=== PATIENT | female | born 1990 | race Caucasian/White ===

== ENCOUNTER 2022-05-01 10:43 | Emergency (ER) | payer BC ==
--- NOTE | 2022-05-01 11:50 | RAD REPORT ---
EXAM DESCRIPTION: RAD - Chest Single View - 05/01/2022 11:35 am CLINICAL HISTORY: CONGESTION Chest pain. COMPARISON: No comparisons FINDINGS: Portable technique limits examination quality. Interstitial markings are mildly prominent suggesting underlying viral infection. The heart is normal in size. No displaced fractures.
[2022-05-01 13:29] LABS: Urine Blood Negative (Negative); Urine Glucose Negative (Negative); Urine Protein Negative (Negative); Urine Specific Gravity 1.025 (1.005-1.030)
--- NOTE | 2022-05-01 13:31 | ER ---
Nurse's Notes [facility] Name: Tanna Bradley Age: 31 yrs Sex: Female : 1990 Arrival Date: 05/01/2022 Time: 10:52 Bed 10 Private MD: Bam Bauer Diagnosis: Nausea with vomiting, unspecified Presentation: 05/01 11:16 Chief complaint: Patient states: Covid + last Sunday, prescribed paxlovid but could ph not tolerate side effects. C/O low back pain, burning w/ urination, fatigue, and dry cough, diarrhea yesterday. Coronavirus screen: Vaccine status: Patient reports being unvaccinated. Ebola Screen: No symptoms or risks identified at this time. Initial Sepsis Screen: Does the patient meet any 2 criteria? No. Patient's initial sepsis screen is negative. Does the patient have a suspected source of infection? Yes: Dysuria/Frequency/Urgency/UTI. Risk Assessment: Do you want to hurt yourself or someone else? Patient reports no desire to harm self or others. Onset of symptoms was May 01, 2022. 11:16 Method Of Arrival: Ambulatory ph 11:16 Acuity: DANA 4 ph Triage Assessment: 11:20 General: Appears in no apparent distress. comfortable, well groomed, Behavior is calm, ph cooperative, appropriate for age, Reports fatigue for >3 days, Denies fever. Pain: Complains of pain in low back area. Neuro: Level of Consciousness is awake, alert, obeys commands, Oriented to person, place, time, situation. Respiratory: Reports cough that is dry. GI: Abdomen is non-distended, Reports diarrhea. : Reports pain in bilateral flank(s), with urination, urinary frequency. Derm: Skin is intact, is healthy with good turgor, Skin is pink, warm \T\ dry. Musculoskeletal: Circulation, motion, and sensation intact. Range of motion: intact in all extremities. Historical: - Allergies: 11:19 Augmentin; ph - PMHx: 11:19 Depressive disorder; Anxiety; ph - PSHx: 11:19 Craniotomy; ph - Immunization history:: Adult Immunizations unknown. - Social history:: Smoking status: Patient/guardian denies using tobacco, Stopped _ months ago 6. Screenin:21 Abuse screen: Denies threats or abuse. Denies injuries from another. Nutritional ph screening: No deficits noted. Tuberculosis screening: No symptoms or risk factors identified. Fall Risk None identified. Vital Signs: 11:16 BP 128 / 97; Pulse 63; Resp 18; Temp 97.6; Pulse Ox 100% on R/A; Weight 93.44 kg; ph Height 5 ft. 11 in. (180.34 cm); 11:16 Body Mass Index 28.73 (93.44 kg, 180.34 cm) ph ED Course: 10:52 Patient arrived in ED. am2 10:52 Bam Bauer MD is Private Physician. am2 10:52 M[facility] Wilkinson is [facility]. jl9 10:52 Juan Antonio Tinoco DO is Attending Physician. jl9 11:16 Marybeth Peters, RN is Primary Nurse. ph 11:19 Triage completed. ph 11:19 Arm band placed on Patient placed in an exam room, on a stretcher. ph 11:21 Patient has correct armband on for positive identification. Bed in low position. Call ph light in reach. Side rails up X 1. Pulse ox on. NIBP on. Door closed. Noise minimized. 11:37 XRAY Chest (1 view) In Process Unspecified. EDMS 14:20 No provider procedures requiring assistance completed. Patient did not have IV access ph during this emergency room visit. Administered Medications: No medications were administered Medication: 11:21 VIS not applicable for this client. ph Outcome: 13:30 Discharge ordered by . jl9 14:25 Patient left the ED. ph 14:25 Discharged to home ambulatory, with family. ph 14:25 Condition: good 14:25 Discharge instructions given to patient, Instructed on discharge instructions, follow up and referral plans. medication usage, Demonstrated understanding of instructions, follow-up care, medications, Prescriptions given X 2. Signatures: Dispatcher [employer] EDMS Marybeth Peters, RN RN Letitia Ivan 2 Manny Wilkinson jl9
--- NOTE | 2022-05-01 13:31 | EDPHYS ---
Physician Documentation [facility] Name: Tanna Bradley Age: 31 yrs Sex: Female : 1990 Arrival Date: 05/01/2022 Time: 10:52 Bed 10 Private MD: Bam Bauer ED Physician Juan Antonio Tinoco HPI: 05/01 11:13 This 31 yrs old Female presents to ER via Unassigned with complaints of jl9 covid+, Nausea/Vomiting/Diarrhea, Flank Pain. Patient tested positive for COVID 6 days ago. . 11:13 Onset: The symptoms/episode began/occurred 1 week(s) ago. Associated signs and jl9 symptoms: Pertinent positives: dysuria, Pertinent negatives: chest pain, diarrhea. Modifying factors: The patient symptoms are alleviated by nothing, the patient symptoms are aggravated by nothing. Historical: - Allergies: 11:19 Augmentin; ph - PMHx: 11:19 Depressive disorder; Anxiety; ph - PSHx: 11:19 Craniotomy; ph - Immunization history:: Adult Immunizations unknown. - Social history:: Smoking status: Patient/guardian denies using tobacco, Stopped _ months ago 6. ROS: 11:14 Constitutional: Negative for fever, chills, and weight loss, Eyes: Negative for injury, jl9 pain, redness, and discharge, ENT: Negative for injury, pain, and discharge, Neck: Negative for injury, pain, and swelling, Cardiovascular: Negative for chest pain, palpitations, and edema. 11:14 Back: Negative for injury and pain. 11:14 MS/Extremity: Negative for injury and deformity, Skin: Negative for injury, rash, and discoloration, Neuro: Negative for headache, weakness, numbness, tingling, and seizure, Psych: Negative for depression, anxiety, suicide ideation, homicidal ideation, and hallucinations, Allergy/Immunology: Negative for hives, rash, and allergies, Endocrine: Negative for neck swelling, polydipsia, polyuria, polyphagia, and marked weight changes, Hematologic/Lymphatic: Negative for swollen nodes, abnormal bleeding, and unusual bruising. 11:14 Respiratory: Positive for cough, Negative for hemoptysis, orthopnea, shortness of breath. 11:14 Abdomen/GI: Positive for Flank pain/ suprapubic pain. . 11:14 : Positive for flank pain. Exam: 11:15 Constitutional: This is a well developed, well nourished patient who is awake, alert, jl9 and in no acute distress. Head/Face: Normocephalic, atraumatic. Eyes: Pupils equal round and reactive to light, extra-ocular motions intact. Lids and lashes normal. Conjunctiva and sclera are non-icteric and not injected. Cornea within normal limits. Periorbital areas with no swelling, redness, or edema. ENT: Mucous membranes moist. Neck: Trachea midline, no thyromegaly or masses palpated, and no cervical lymphadenopathy. Supple, full range of motion without nuchal rigidity, or vertebral point tenderness. No Meningismus. Chest/axilla: Normal chest wall appearance and motion. Nontender with no deformity. No lesions are appreciated. Cardiovascular: Regular rate and rhythm with a normal S1 and S2. No gallops, murmurs, or rubs. Normal PMI, no JVD. No pulse deficits. Respiratory: Lungs have equal breath sounds bilaterally, clear to auscultation and percussion. No rales, rhonchi or wheezes noted. No increased work of breathing, no retractions or nasal flaring. 11:15 Skin: Warm, dry with normal turgor. Normal color with no rashes, no lesions, and no evidence of cellulitis. MS/ Extremity: Pulses equal, no cyanosis. Neurovascular intact. Full, normal range of motion. Neuro: Awake and alert, GCS 15, oriented to person, place, time, and situation. Cranial nerves II-XII grossly intact. Motor strength 5/5 in all extremities. Sensory grossly intact. Cerebellar exam normal. Normal gait. Psych: Awake, alert, with orientation to person, place and time. Behavior, mood, and affect are within normal limits. 11:15 Abdomen/GI: Inspection: abdomen appears normal, Bowel sounds: normal, Palpation: mild abdominal tenderness, Suprapubic.. 11:15 Back: pain, CVA tenderness, that is mild, is noted bilaterally. Vital Signs: 11:16 BP 128 / 97; Pulse 63; Resp 18; Temp 97.6; Pulse Ox 100% on R/A; Weight 93.44 kg; ph Height 5 ft. 11 in. (180.34 cm); 11:16 Body Mass Index 28.73 (93.44 kg, 180.34 cm) ph MDM: 11:03 Patient medically screened. jl9 11:17 Data reviewed: vital signs, nurses notes. jl9 13:17 Counseling: I had a detailed discussion with the patient and/or guardian regarding: the jl9 historical points, exam findings, and any diagnostic results supporting the discharge/admit diagnosis, lab results, radiology results, the need for outpatient follow up. 05/01 13:29 Order name: Urine Dipstick-Ancillary; Complete Time: 13:30 EDMS 05/01 13:41 Order name: Urine --Ancillary (enter results); Complete Time: 14:21 bd 05/01 11:04 Order name: Urine Dipstick-Ancillary (obtain specimen); Complete Time: 11:22 jl9 05/01 11:04 Order name: XRAY Chest (1 view); Complete Time: 11:52 jl9 Administered Medications: No medications were administered Disposition: 21:36 Co-signature as Attending Physician, Juan Antonio Tinoco DO I agree with the assessment and ms3 plan of care. Disposition Summary: 05/01/22 13:30 Discharge Ordered Location: Home jl9 Condition: Stable jl9 Diagnosis - Nausea with vomiting, unspecified jl9 Followup: jl9 - With: Private Physician - When: 1 - 2 days - Reason: Recheck today's complaints, Continuance of care, Re-evaluation by your physician Discharge Instructions: - Discharge Summary Sheet jl9 - Nausea and Vomiting, Adult, [id number] jl9 Forms: - Medication Reconciliation Form jl9 - Work release form ph - Thank You Letter jl9 - Antibiotic Education jl9 - Prescription Opioid Use jl9 Prescriptions: - Cipro 500 mg Oral Tablet - take 1 tablet by ORAL route every 12 hours for 7 days; 14 tablet; Refills: 0, jl9 Product Selection Permitted - ondansetron 8 mg Oral tablet,disintegrating - take 1 tablet by ORAL route every 8 hours As needed; 21 tablet; Refills: 0, jl9 Product Selection Permitted Signatures: Dispatcher [employer] Marybeth Moore RN RN ph Juan Antonio Tinoco DO DO ms3 Manny Wilkinson jl9
[2022-05-01 14:19] LABS: Urine Specific Gravity/Preg 1.025 (1.005-1.030)
[2022-05-01 14:36] VITALS: BP 128/97; TEMP 97.6; O2SAT 100
== END 2022-05-01 14:25 | disposition home or self-care (01) ==
LOC: ER 10:43
DX: R11.0 Nausea (principal); R30.0 Dysuria; Z88.1 Allergy status to other antibiotic agents
CPT/HCPCS: 71045; 81003; 81025; 99283

== ENCOUNTER 2023-04-01 00:02 | Emergency (ER) | payer BC ==
[2023-04-01] MEDS ORDERED: ONDANSETRON 4 MG/2 ML VIAL ONE (00:41)
[2023-04-01] MEDS ORDERED: FAMOTIDINE 20 MG/2 ML VIAL IV ONE (00:41)
[2023-04-01] MEDS ORDERED: NA CHLORIDE 0.9% 1,000 ML ONE (00:41)
[2023-04-01] MEDS ORDERED: DICYCLOMINE HCL 20 MG/2 ML AMP IM ONE (00:41)
[2023-04-01 00:47] LABS: Absolute Lymphocytes (CBC) 0.8 K/uL (0.7-4.9); Hematocrit 38.3 % (36.0-45.0); MCV 90.7 fL (80-100); RBC Red Blood Cell Count 4.22 M/uL (3.86-4.86)
[2023-04-01 01:05] LABS: Bilirubin Total 0.5 mg/dL (0.2-1.0); Potassium 3.4 mEq/L (3.5-5.1); Protein, Total 8.1 g/dL (6.4-8.2)
[2023-04-01] MEDS ORDERED: METOCLOPRAMIDE 10 MG/2mL INJ ONE (01:31)
[2023-04-01] MEDS ORDERED: DIPHENHYDRAMINE 50 MG/ML VIAL ONE (01:32)
--- NOTE | 2023-04-01 02:14 | EDPHYS ---
Physician Documentation [facility] Name: Tanna Bradley Age: 32 yrs Sex: Female : 1990 Arrival Date: 04/01/2023 Time: 00:02 Bed 7 Private MD: ED Physician Solitario Rahman HPI: 04/01 00:55 This 32 yrs old Female presents to ER via Wheelchair with complaints of rt Nausea/Vomiting/Diarrhea. 00:55 Patient presents to the ED with nausea, vomiting, diarrhea starting about 2 hours prior rt to arrival. She reports a crampy upper abdominal pain denies hematemesis, hematochezia. Denies other acute complaints at this time, symptoms are moderate severity, no other aggravating alleviating factors.. 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 - Social history:: Smoking status: Patient denies any tobacco usage or history of. - Family history:: not pertinent. ROS: 00:55 Constitutional: Negative for fever, chills, and weight loss, Cardiovascular: Negative rt for chest pain, palpitations, and edema, Respiratory: Negative for shortness of breath, cough, wheezing, and pleuritic chest pain, MS/Extremity: Negative for injury and deformity, Skin: Negative for injury, rash, and discoloration, Neuro: Negative for headache, weakness, numbness, tingling, and seizure, Psych: Negative for depression, anxiety, suicide ideation, homicidal ideation, and hallucinations. 00:55 Abdomen/GI: Positive for abdominal pain, nausea, vomiting, and diarrhea. Exam: 00:55 Constitutional: This is a well developed, well nourished patient who is awake, alert, rt and in no acute distress. Head/Face: Normocephalic, atraumatic. Chest/axilla: Normal chest wall appearance and motion. Nontender with no deformity. No lesions are appreciated. Cardiovascular: Regular rate and rhythm with a normal S1 and S2. No gallops, murmurs, or rubs. Normal PMI, no JVD. No pulse deficits. Respiratory: Lungs have equal breath sounds bilaterally, clear to auscultation and percussion. No rales, rhonchi or wheezes noted. No increased work of breathing, no retractions or nasal flaring. Skin: Warm, dry with normal turgor. Normal color with no rashes, no lesions, and no evidence of cellulitis. MS/ Extremity: Pulses equal, no cyanosis. Neurovascular intact. Full, normal range of motion. Neuro: Awake and alert, GCS 15, oriented to person, place, time, and situation. Cranial nerves II-XII grossly intact. Motor strength 5/5 in all extremities. Sensory grossly intact. Cerebellar exam normal. Normal gait. Psych: Awake, alert, with orientation to person, place and time. Behavior, mood, and affect are within normal limits. 00:55 Abdomen/GI: Tenderness to the right upper quadrant to epigastrium, no rebound, guarding, distention, no focal right lower quadrant tenderness. Vital Signs: 00:21 BP 119 / 77; Pulse 59; Resp 16; Temp 97.5(O); Pulse Ox 100% on R/A; Weight 97.52 kg; kd3 Height 5 ft. 9 in. ; 01:26 Pulse 53; Resp 20 S; Pulse Ox 100% on R/A; as6 00:21 Body Mass Index 31.75 (97.52 kg, 175.26 cm) kd3 MDM: 00:22 Patient medically screened. rt 02:15 Differential diagnosis: Gastroenteritis, cholecystitis, gastritis. Data reviewed: vital rt signs, nurses notes, lab test result(s), radiologic studies. I considered the following discharge prescriptions or medication management in the emergency department Medications were administered in the Emergency Department. See MAR. Test considered but Not performed: CT: Benign abdominal examination, stable labs, CT scan is not indicated.. Counseling: I had a detailed discussion with the patient and/or guardian regarding: the historical points, exam findings, and any diagnostic results supporting the discharge/admit diagnosis, lab results, radiology results, the need for outpatient follow up, to return to the emergency department if symptoms worsen or persist or if there are any questions or concerns that arise at home. Response to treatment: the patient's symptoms have markedly improved after treatment. 04/01 00:29 Order name: CBC with Diff; Complete Time: 01:12 rt 04/01 00:29 Order name: CMP; Complete Time: 01:12 rt 04/01 00:29 Order name: Lipase; Complete Time: 01:12 rt 04/01 00:29 Order name: Abdomen Limited US rt 04/01 00:29 Order name: IV Saline Lock; Complete Time: 00:43 rt 04/01 00:29 Order name: Labs collected and sent; Complete Time: 00:43 rt Administered Medications: 00:43 Drug: Famotidine IVP 20 mg Route: IVP; Site: right antecubital; as6 02:18 Follow up: Response: No adverse reaction as6 00:43 Drug: Dicyclomine IM 20 mg Route: IM; Site: right ventrogluteal; as6 02:18 Follow up: Response: No adverse reaction as6 00:44 Drug: NS 0.9% IV 1000 ml Route: IV; Rate: 1 bolus; Site: right antecubital; as6 02:18 Follow up: Response: No adverse reaction; IV Status: Completed infusion; IV Intake: as6 1000ml 00:44 Drug: Ondansetron IVP 4 mg Route: IVP; Site: right antecubital; as6 02:18 Follow up: Response: No adverse reaction as6 01:25 Drug: metoCLOPramide IVP 10 mg Route: IVP; Site: right antecubital; as6 02:18 Follow up: Response: No adverse reaction as6 01:26 Drug: diphenhydrAMINE IVP 25 mg Route: IVP; Site: right antecubital; as6 02:18 Follow up: Response: No adverse reaction as6 Disposition Summary: 04/01/23 02:14 Discharge Ordered Location: Home rt Problem: new rt Symptoms: have improved rt Condition: Stable rt Diagnosis - Nausea with vomiting, unspecified rt - Diarrhea, unspecified rt Followup: rt - With: Private Physician - When: 2 - 3 days - Reason: Discharge Instructions: - Discharge Summary Sheet rt - Diarrhea, Adult rt - Nausea and Vomiting, Adult rt Forms: - Medication Reconciliation Form rt - Thank You Letter rt - Antibiotic Education rt - Prescription Opioid Use rt - Patient Portal Instructions rt Prescriptions: - Reglan 10 mg Oral Tablet - take 1 tablet by ORAL route every 6 hours Take as needed for nausea and rt vomiting; 21 tablet; Refills: 0, Product Selection Permitted Signatures: Dispatcher [employer] Phuc Cox RN RN as6 Jodie Salcedo RN RN kd3 Solitario Rahman MD MD rt
--- NOTE | 2023-04-01 02:14 | ER ---
Nurse's Notes [facility] Name: Tanna Bradley Age: 32 yrs Sex: Female : 1990 Arrival Date: 04/01/2023 Time: 00:02 Bed 7 Private MD: Diagnosis: Nausea with vomiting, unspecified;Diarrhea, unspecified Presentation: 04/01 00:21 Chief complaint: Patient states: About 3 or 4 hours ago i started having nausea, kd3 vomiting and diarrhea that wont stop. I have not eaten anything new and i have not had fever. Prior to the nausea and vomiting, I did not feel bad other than a bit of nausea. Coronavirus screen: Vaccine status: Patient reports being unvaccinated. Ebola Screen: No symptoms or risks identified at this time. Initial Sepsis Screen: Does the patient meet any 2 criteria? No. Patient's initial sepsis screen is negative. Does the patient have a suspected source of infection? No. Patient's initial sepsis screen is negative. Risk Assessment: Do you want to hurt yourself or someone else? Patient reports no desire to harm self or others. Onset of symptoms was April 01, 2023. 00:21 Method Of Arrival: Wheelchair kd3 00:21 Acuity: DANA 3 kd3 Triage Assessment: 00:24 General: Appears uncomfortable, ill, Behavior is calm, cooperative. Pain: Complains of kd3 pain in epigastric area. GI: Reports upper abdominal pain, diarrhea, nausea, vomiting. 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 - Social history:: Smoking status: Patient denies any tobacco usage or history of. - Family history:: not pertinent. Screenin:45 [facility] ED Fall Risk Assessment (Adult) Score/Fall Risk Level 0 - 2 = Low Risk. Abuse as6 screen: Denies threats or abuse. Denies injuries from another. Nutritional screening: No deficits noted. Tuberculosis screening: No symptoms or risk factors identified. Assessment: 00:44 General: Appears uncomfortable, ill, Behavior is calm, cooperative. Pain: Complains of as6 pain in abdomen and epigastric area. Neuro: Level of Consciousness is awake, alert, obeys commands, Oriented to person, place, time, situation. Cardiovascular: Capillary refill < 3 seconds Patient's skin is warm and dry. Respiratory: Respiratory effort is even, unlabored, Respiratory pattern is regular, symmetrical. GI: Pt is actively vomiting bile, Reports upper abdominal pain, diarrhea, nausea, vomiting. 01:25 General: pt still c/o nasuea and is dry heaving . as6 Vital Signs: 00:21 BP 119 / 77; Pulse 59; Resp 16; Temp 97.5(O); Pulse Ox 100% on R/A; Weight 97.52 kg; kd3 Height 5 ft. 9 in. ; 01:26 Pulse 53; Resp 20 S; Pulse Ox 100% on R/A; as6 00:21 Body Mass Index 31.75 (97.52 kg, 175.26 cm) kd3 ED Course: 00:06 Patient arrived in ED. kj1 00:13 Solitario Rahman MD is Attending Physician. rt 00:16 Phuc Hedrick, MOUSTAPHA is Primary Nurse. as6 00:24 Triage completed. kd3 00:24 Arm band placed on right wrist. kd3 00:44 Inserted saline lock: 20 gauge in right antecubital area, using aseptic technique. as6 Blood collected. 00:45 Bed in low position. Call light in reach. as6 01:14 Abdomen Limited US In Process Unspecified. EDMS 02:19 Provided Education on: discharge teaching . as6 02:19 No provider procedures requiring assistance completed. IV discontinued, intact, as6 bleeding controlled, No redness/swelling at site. Pressure dressing applied. Administered Medications: 00:43 Drug: Famotidine IVP 20 mg Route: IVP; Site: right antecubital; as6 02:18 Follow up: Response: No adverse reaction as6 00:43 Drug: Dicyclomine IM 20 mg Route: IM; Site: right ventrogluteal; as6 02:18 Follow up: Response: No adverse reaction as6 00:44 Drug: NS 0.9% IV 1000 ml Route: IV; Rate: 1 bolus; Site: right antecubital; as6 02:18 Follow up: Response: No adverse reaction; IV Status: Completed infusion; IV Intake: as6 1000ml 00:44 Drug: Ondansetron IVP 4 mg Route: IVP; Site: right antecubital; as6 02:18 Follow up: Response: No adverse reaction as6 01:25 Drug: metoCLOPramide IVP 10 mg Route: IVP; Site: right antecubital; as6 02:18 Follow up: Response: No adverse reaction as6 01:26 Drug: diphenhydrAMINE IVP 25 mg Route: IVP; Site: right antecubital; as6 02:18 Follow up: Response: No adverse reaction as6 Medication: 00:45 VIS not applicable for this client. as6 Intake: 02:18 IV: 1000ml; Total: 1000ml. as6 Outcome: 02:14 Discharge ordered by . rt 02:19 Discharged to home ambulatory. as6 02:19 Condition: stable 02:19 Discharge instructions given to patient, Instructed on discharge instructions, follow up and referral plans. medication usage, Demonstrated understanding of instructions, follow-up care, medications, Prescriptions given X 1. 02:19 Patient left the ED. as6 Signatures: Dispatcher [employer] EDAK Esteban Courtney kj1 Phuc Hedrick RN RN as6 Jodie Salcedo RN RN kd3 Solitario Rahman MD MD rt
[2023-04-01 02:39] VITALS: BP 119/77; TEMP 97.5; O2SAT 100
--- NOTE | 2023-04-01 13:37 | RAD REPORT ---
EXAM DESCRIPTION: US - Abdomen Exam Limited - 04/01/2023 1:12 am CLINICAL HISTORY: The patient is 32 years old and is Female; RUQ tenderness TECHNIQUE: Real-time ultrasound of the right upper quadrant with image documentation. COMPARISON: No relevant prior studies available. FINDINGS: GALLBLADDER: The gallbladder is moderately distended. No gallstones are seen. There is n o gallbladder wall thickening or pericholecystic fluid. COMMON BILE DUCT: Unremarkable as visualized. No stones. No dilation. PANCREAS: Unremarkable as visualized. IMPRESSION: Normal sonographic appearance of the gallbladder. Electronically signed by: Josee Mcclain MD 04/01/2023 1:47 AM CDT Due to temporary technical issues with the PACS/Fluency reporting system, reports are being signed by the in house radiologists without review as a courtesy to insure prompt reporting. The interpreting radiologist is fully responsible for the content of the report.
== END 2023-04-01 02:19 | disposition home or self-care (01) ==
LOC: ER 00:02
DX: R11.2 Nausea with vomiting, unspecified (principal); R19.7 Diarrhea, unspecified; Z88.0 Allergy status to penicillin; Z88.1 Allergy status to other antibiotic agents
CPT/HCPCS: 96361; 85025; 36415; 83690; 80053; 76705; 96375; 96372; 96374; 99284; J2765; J0500; J1200; J2405; J7030

== ENCOUNTER 2024-03-12 07:28 | Emergency (ER) | payer BC, SELFPAY ==
[2024-03-12] MEDS ORDERED: PROMETHAZINE INJ 25 MG/ML AMP ONE (07:43)
[2024-03-12] MEDS ORDERED: FAMOTIDINE 20 MG/2 ML VIAL IV ONE (07:43)
[2024-03-12] MEDS ORDERED: NA CHLORIDE 0.9% 2,000 ML ONE (07:44)
[2024-03-12 07:57] LABS: Absolute Basophils 0.1 K/uL (0-0.5); Absolute Lymphocytes (CBC) 1.2 K/uL (0.7-4.9); Absolute Monocytes 0.6 K/uL (0.1-1.3); Absolute Neutrophil 9.5 K/uL (1.8-8.0); Basophils % 0.6 % (0-1.3); Eosinophils % 0.2 % (0-4.4); Hematocrit 39.3 % (36.0-45.0); Hemoglobin 12.8 g/dL (12.0-15.0); Lymphocytes % 10.5 % (15.3-44.8); MCH 29.7 pg (27.0-35.0); MCHC 32.6 g/dL (32.0-36.0); MPV 10.5 fL (7.6-11.3); Monocytes % 5.4 % (3.3-12.3); Neutrophils % 83.3 % (41.7-73.7); Platelets 287 thou/uL (152-406); RBC Red Blood Cell Count 4.32 M/uL (3.86-4.86); Red Cell Distribution Width 13.6 % (12.1-15.2)
[2024-03-12 08:10] LABS: Albumin 3.9 g/dL (3.4-5.0); Anion Gap 12.1 mEq/L (5.0-15.0); Bilirubin Total 0.5 mg/dL (0.2-1.0); Globulin 3.8 g/dL (2.3-3.5); Potassium 3.1 mEq/L (3.5-5.1); Protein, Total 7.7 g/dL (6.4-8.2)
[2024-03-12] MEDS ORDERED: POTASSIUM 25 MEQ EFFERV TAB ONE (10:10)
--- NOTE | 2024-03-12 10:52 | EDPHYS ---
Physician Documentation [facility] Name: Tanna Bradley Age: 33 yrs Sex: Female : 1990 Arrival Date: 03/12/2024 Time: 07:28 Bed 7 Private MD: GARY Physician Modesto Cote HPI: 03/12 10:43 This 33 yrs old Female presents to ER via EMS with complaints of michael Nausea/Vomiting. 10:43 The patient presents to the emergency department with nausea, vomiting, that is michael intermittent, described as bilious. Onset: The symptoms/episode began/occurred 1 week(s) ago. Possible causes: unknown. The symptoms are aggravated by movement, The symptoms are alleviated by nothing. Associated signs and symptoms: Pertinent positives: nausea, vomiting. Severity of symptoms: At their worst the symptoms were moderate in the emergency department the symptoms have improved moderately. The patient has experienced similar episodes in the past, a few times. Historical: - Allergies: 07:38 Augmentin; ph 07:38 PENICILLINS; ph - PMHx: 07:38 Anxiety; depressive disorder; ph - PSHx: 07:38 Craniotomy; ph - Immunization history:: Adult Immunizations unknown. - Infectious Disease History:: Denies. - Social history:: Smoking status: Patient denies any tobacco usage or history of. Patient uses alcohol, occasionally. Patient/guardian denies using street drugs. ROS: 10:45 Constitutional: Negative for fever, chills, and weight loss, Eyes: Negative for injury, michael pain, redness, and discharge, ENT: Negative for injury, pain, and discharge, Neck: Negative for injury, pain, and swelling, Cardiovascular: Negative for chest pain, palpitations, and edema, Respiratory: Negative for shortness of breath, cough, wheezing, and pleuritic chest pain, Back: Negative for injury and pain, : Negative for injury, bleeding, discharge, and swelling, MS/Extremity: Negative for injury and deformity, Skin: Negative for injury, rash, and discoloration, Neuro: Negative for headache, weakness, numbness, tingling, and seizure, Psych: Negative for depression, anxiety, suicide ideation, homicidal ideation, and hallucinations, Allergy/Immunology: Negative for hives, rash, and allergies, Endocrine: Negative for neck swelling, polydipsia, polyuria, polyphagia, and marked weight changes, Hematologic/Lymphatic: Negative for swollen nodes, abnormal bleeding, and unusual bruising, 10:45 Abdomen/GI: Positive for nausea and vomiting, abdominal cramps, Exam: 10:45 Constitutional: This is a well developed, well nourished patient who is awake, alert, michael and in no acute distress. Head/Face: Normocephalic, atraumatic. Eyes: Pupils equal round and reactive to light, extra-ocular motions intact. Lids and lashes normal. Conjunctiva and sclera are non-icteric and not injected. Cornea within normal limits. Periorbital areas with no swelling, redness, or edema. ENT: Nares patent. No nasal discharge, no septal abnormalities noted. Tympanic membranes are normal and external auditory canals are clear. Oropharynx with no redness, swelling, or masses, exudates, or evidence of obstruction, uvula midline. Mucous membranes moist. Neck: Trachea midline, no thyromegaly or masses palpated, and no cervical lymphadenopathy. Supple, full range of motion without nuchal rigidity, or vertebral point tenderness. No Meningismus. Chest/axilla: Normal chest wall appearance and motion. Nontender with no deformity. No lesions are appreciated. Cardiovascular: Regular rate and rhythm with a normal S1 and S2. No gallops, murmurs, or rubs. Normal PMI, no JVD. No pulse deficits. Respiratory: Lungs have equal breath sounds bilaterally, clear to auscultation and percussion. No rales, rhonchi or wheezes noted. No increased work of breathing, no retractions or nasal flaring. Abdomen/GI: Soft, non-tender, with normal bowel sounds. No distension or tympany. No guarding or rebound. No evidence of tenderness throughout. Back: No spinal tenderness. No costovertebral tenderness. Full range of motion. Skin: Warm, dry with normal turgor. Normal color with no rashes, no lesions, and no evidence of cellulitis. MS/ Extremity: Pulses equal, no cyanosis. Neurovascular intact. Full, normal range of motion. Neuro: Awake and alert, GCS 15, oriented to person, place, time, and situation. Cranial nerves II-XII grossly intact. Motor strength 5/5 in all extremities. Sensory grossly intact. Cerebellar exam normal. Normal gait. Psych: Awake, alert, with orientation to person, place and time. Behavior, mood, and affect are within normal limits. 10:45 ECG was reviewed by the Attending Physician. Vital Signs: 07:32 BP 118 / 87; Pulse 55; Resp 20; Temp 97.3; Pulse Ox 100% on R/A; Weight 97.52 kg; ph Height 5 ft. 9 in. ; Pain 0/10; 09:28 BP 120 / 80; Pulse 50; Resp 18; Pulse Ox 98% on R/A; ph 10:55 BP 118 / 78; Pulse 51; Resp 18; Temp 97.9; Pulse Ox 97% on R/A; ph 07:32 Body Mass Index 31.75 (97.52 kg, 175.26 cm) ph 07:32 Pain Scale: Adult ph MDM: 07:32 Patient medically screened. [facility] 10:47 Differential diagnosis: Nonspecific abd pain, gastritis, cholecystitis, pancreatitis, michael appendicitis, diverticulitis, viral gastroenteritis, gastroenteritis, appendicitis, bowel obstruction, coronary artery disease, cholecystitis, Cholelithiasis, diverticulitis, gastritis, gastroesophageal reflux disease, Mesenteric ischemia or infarction, non-specific abd pain, pancreatitis, Peptic Ulcer Disease, Perf. Duodenal Ulcer. Data reviewed: vital signs, nurses notes, lab test result(s), EKG, radiologic studies. Consideration of Admission/Observation Escalation of care including admission/observation considered. I considered the following discharge prescriptions or medication management in the emergency department Medications were administered in the Emergency Department. See MAR. Independent interpretation of the following test(s) in the Emergency Department EKG: See my EKG interpretation above. Test considered but Not performed: MRI: no mrcp. Historians other than the Patient: Spouse/Significant Other: sign other. Care significantly affected by the following chronic conditions: Obesity, anxiety, depression. 03/12 07:33 Order name: CBC with Diff; Complete Time: 09:54 [facility] 03/12 07:33 Order name: CMP; Complete Time: 09:54 michael 03/12 07:33 Order name: Lipase; Complete Time: 09:54 03/12 07:33 Order name: Test, Urine; Complete Time: 11:25 03/12 07:33 Order name: Urinalysis w/ reflexes; Complete Time: 11:25 03/12 10:44 Order name: US Abdomen Limited 03/12 07:42 Order name: EKG; Complete Time: 07:42 [facility] 03/12 07:33 Order name: IV Saline Lock; Complete Time: 07:40 [facility] 03/12 07:33 Order name: Labs collected and sent; Complete Time: 07:58 [facility] 03/12 07:42 Order name: EKG - Nurse/Tech; Complete Time: 08:20 [facility] 03/12 10:43 Order name: PO challenge; Complete Time: : [facility] 03/12 11:00 Order name: Misc. Order: get ua please; Complete Time: :28 [facility] EC:45 Rate is 48 beats/min. Rhythm is regular. QRS Paradox is Normal. OR interval is shortened [facility] at 80 msec. QRS interval is normal. QT interval is prolonged at 462 msec. No Q waves. T waves are Normal. No ST changes noted. Clinical impression: Sinus bradycardia and No evidence of ischemia. Interpreted by me. Reviewed by me. Administered Medications: :58 Drug: NS 0.9% IV 1000 ml IV at 1 bolus Per protocol; 1000 mL bolus Route: IV; Rate: 1 ph bolus; Site: right antecubital; 09:30 Follow up: Response: No adverse reaction; IV Status: Completed infusion; IV Intake: ph 1000ml 07:58 Drug: Famotidine IVP 20 mg IVP once; dilute with 10 mL 0.9% NaCl; give over 2 minutes ph Route: IVP; Site: right antecubital; 11:02 Follow up: Response: No adverse reaction ph 07:58 Not Given (Other Intervention Used): ondansetron 4 mg IVP once; over 2 minutes ph 07:58 Drug: Promethazine IVP 12.5 mg IVP once Route: IVP; Site: right antecubital; ph 11:02 Follow up: Response: No adverse reaction; Nausea is decreased ph 09:28 Drug: NS 0.9% IV 1000 ml IV at 1 bolus Per protocol; 1000 mL bolus Route: IV; Rate: 1 ph bolus; Site: right antecubital; 11:02 Follow up: Response: No adverse reaction; IV Status: Completed infusion; IV Intake: ph 1000ml 09:28 Drug: Promethazine IVP 12.5 mg IVP once Route: IVP; Site: right antecubital; ph 11:02 Follow up: Response: No adverse reaction; Nausea is decreased ph 11:01 Drug: Potassium PO Effervescent Tablet 50 mEq PO once; dissolve in 4 ounces of water or ph juice Route: PO; 11:02 Follow up: Response: No adverse reaction ph Disposition Summary: 03/12/24 10:51 Discharge Ordered Notes: Location: Home michael Problem: new michael Symptoms: have improved michael Condition: Stable michael Diagnosis - Vomiting michael - Epigastric abdominal tenderness michael - Hypokalemia michael Followup: michael - With: Private Physician - When: 2 - 3 days - Reason: Recheck today's complaints, Continuance of care, Re-evaluation by your physician Followup: michael - With: Jovany Harmon MD - When: 2 - 3 days - Reason: Recheck today's complaints, Re-evaluation by your physician Discharge Instructions: - Discharge Summary Sheet michael - Abdominal Pain, Adult michael - Potassium Content of Foods michael - Abdominal Pain, Adult, [id number] michael - Hypokalemia michael - Vomiting, Adult [facility] Forms: - Medication Reconciliation Form [facility] - Antibiotic Education [facility] - Prescription Opioid Use [facility] - Patient Portal Instructions [facility] - Leadership Thank You Letter [facility] - Family Work Release ph Prescriptions: - ondansetron 4 mg Oral Tablet,disintegrating - take 1 tablet ORAL route every 6-8 hours for 5 days; 20 tablet; Refills: 0, [facility] Product Selection Permitted - promethazine 25 mg Rectal suppository - insert 1 suppository RECTAL route every 6 hours as needed for nausea and michael vomiting; 20 suppository; Refills: 0, Product Selection Permitted - Pepcid 20 mg Oral tablet - take 1 tablet ORAL route every 12 hours for 30 days; 60 tablet; Refills: 0, [facility] Product Selection Permitted - Potassium Chloride 20 meq Oral Packet - take 1 packet ORAL route once daily 1 packet in 6 (six) ounces of water or michael juice; Take after meal; 10 packet; Refills: 0, Product Selection Permitted - promethazine 25 mg Oral Tablet - take 1 tablet ORAL route every 6 hours As needed; 20 tablet; Refills: 0, [facility] Product Selection Permitted Signatures: Dispatcher [employer] Modesto Maradiaga MD MD cha Hall, Patricia RN RN ph
--- NOTE | 2024-03-12 10:52 | ER ---
Nurse's Notes [facility] Name: Tanna Bradley Age: 33 yrs Sex: Female : 1990 Arrival Date: 03/12/2024 Time: 07:28 Bed 7 Private MD: Diagnosis: Vomiting;Epigastric abdominal tenderness;Hypokalemia Presentation: 03/12 07:32 Chief complaint: EMS states: Pt c/o N/V x 4-5 hours, denies abdominal pain or diarrhea, ph states that she has had these episodes in the past, VSS other than HR in the 50s, 8 mg Zofran given IVP, pt states that she still feels nauseous. Coronavirus screen: Vaccine status: Patient reports receiving the 1st dose of the Covid vaccine. Ebola Screen: No symptoms or risks identified at this time. Initial Sepsis Screen: Does the patient meet any 2 criteria? No. Patient's initial sepsis screen is negative. Does the patient have a suspected source of infection? No. Patient's initial sepsis screen is negative. Risk Assessment: Do you want to hurt yourself or someone else? Patient reports no desire to harm self or others. Onset of symptoms was March 12, 2024. 07:32 Method Of Arrival: EMS: [facility] ph 07:32 Acuity: DANA 3 ph Triage Assessment: 07:38 General: Appears in no apparent distress. uncomfortable, Behavior is calm, cooperative. ph Pain: Denies pain. Neuro: Level of Consciousness is awake, alert, obeys commands, Oriented to person, place, time, situation. Cardiovascular: Capillary refill < 3 seconds in bilateral fingers. 07:39 Respiratory: Airway is patent Respiratory effort is even, unlabored, Respiratory ph pattern is regular, symmetrical. GI: Reports nausea, vomiting, Patient currently denies abdominal pain. Derm: Skin is pink, warm \T\ dry. Musculoskeletal: Circulation, motion, and sensation intact. Range of motion: intact in all extremities. Historical: - Allergies: 07:38 Augmentin; ph 07:38 PENICILLINS; ph - PMHx: 07:38 Anxiety; depressive disorder; ph - PSHx: 07:38 Craniotomy; ph - Immunization history:: Adult Immunizations unknown. - Infectious Disease History:: Denies. - Social history:: Smoking status: Patient denies any tobacco usage or history of. Patient uses alcohol, occasionally. Patient/guardian denies using street drugs. Screenin:39 [facility] ED Fall Risk Assessment (Adult) History of falling in the last 3 months, ph including since admission No falls in past 3 months (0 pts) Confusion or Disorientation No (0 pts) Intoxicated or Sedated No (0 pts) Impaired Gait No (0 pts) Mobility Assist Device Used No (0 pt) Altered Elimination No (0 pt) Score/Fall Risk Level 0 - 2 = Low Risk Oriented to surroundings, Maintained a safe environment, Hourly rounding (assess needs \T\ fall precautionary measures) done. Abuse screen: Denies threats or abuse. Denies injuries from another. Nutritional screening: No deficits noted. Tuberculosis screening: No symptoms or risk factors identified. Assessment: 08:30 General: SEE TRIAGE ASSESSMENT. ph 09:29 Reassessment: Patient appears in no apparent distress at this time. Patient and/or ph family updated on plan of care and expected duration. Pain level reassessed. Patient is alert, oriented x 3, equal unlabored respirations, skin warm/dry/pink. Pt states that nausea is improving. 11:03 Reassessment: Patient appears in no apparent distress at this time. Patient and/or ph family updated on plan of care and expected duration. Pain level reassessed. Patient is alert, oriented x 3, equal unlabored respirations, skin warm/dry/pink. Pt taken for US, d/c pending results. Vital Signs: 07:32 BP 118 / 87; Pulse 55; Resp 20; Temp 97.3; Pulse Ox 100% on R/A; Weight 97.52 kg; ph Height 5 ft. 9 in. ; Pain 0/10; 09:28 BP 120 / 80; Pulse 50; Resp 18; Pulse Ox 98% on R/A; ph 10:55 BP 118 / 78; Pulse 51; Resp 18; Temp 97.9; Pulse Ox 97% on R/A; ph 07:32 Body Mass Index 31.75 (97.52 kg, 175.26 cm) ph 07:32 Pain Scale: Adult ED Course: 07:30 Initial lab(s) drawn, by me, sent to lab. Maintain EMS IV. Dressing intact. Good blood ph return noted. Site clean \T\ dry. Gauge \T\ site: 20 RAC. 07:31 Patient arrived in ED. ph 07:32 Modesto Cote MD is Attending Physician. michael 07:38 Triage completed. ph 07:39 Arm band placed on Patient placed in an exam room, on a stretcher. ph 07:40 Marybeth Peters RN is Primary Nurse. ph 07:40 Patient has correct armband on for positive identification. Bed in low position. Call ph light in reach. Side rails up X2. 10:50 Jovany Harmon MD is Referral Physician. michael 10:57 No provider procedures requiring assistance completed. ph 11:11 US Abdomen Limited In Process Unspecified. EDMS 11:35 IV discontinued, intact, bleeding controlled, No redness/swelling at site. Pressure ph dressing applied. Administered Medications: 07:58 Drug: NS 0.9% IV 1000 ml IV at 1 bolus Per protocol; 1000 mL bolus Route: IV; Rate: 1 ph bolus; Site: right antecubital; 09:30 Follow up: Response: No adverse reaction; IV Status: Completed infusion; IV Intake: ph 1000ml 07:58 Drug: Famotidine IVP 20 mg IVP once; dilute with 10 mL 0.9% NaCl; give over 2 minutes ph Route: IVP; Site: right antecubital; 11:02 Follow up: Response: No adverse reaction ph 07:58 Not Given (Other Intervention Used): ondansetron 4 mg IVP once; over 2 minutes ph 07:58 Drug: Promethazine IVP 12.5 mg IVP once Route: IVP; Site: right antecubital; ph 11:02 Follow up: Response: No adverse reaction; Nausea is decreased ph 09:28 Drug: NS 0.9% IV 1000 ml IV at 1 bolus Per protocol; 1000 mL bolus Route: IV; Rate: 1 ph bolus; Site: right antecubital; 11:02 Follow up: Response: No adverse reaction; IV Status: Completed infusion; IV Intake: ph 1000ml 09:28 Drug: Promethazine IVP 12.5 mg IVP once Route: IVP; Site: right antecubital; ph 11:02 Follow up: Response: No adverse reaction; Nausea is decreased ph 11:01 Drug: Potassium PO Effervescent Tablet 50 mEq PO once; dissolve in 4 ounces of water or ph juice Route: PO; 11:02 Follow up: Response: No adverse reaction ph Medication: 07:40 VIS not applicable for this client. ph Intake: 09:30 IV: 1000ml; Total: 1000ml. ph 11:02 IV: 1000ml; Total: 2000ml. ph Outcome: 10:51 Discharge ordered by . michael 11:35 Discharged to home ambulatory, with significant other, ph 11:35 Condition: good 11:35 Discharge instructions given to patient, Instructed on discharge instructions, follow up and referral plans. medication usage, Demonstrated understanding of instructions, follow-up care, medications, Prescriptions given X 5 11:36 Patient left the ED. ph Signatures: Dispatcher [employer] EDModesto Ac MD MD cha Hall, Patricia, RN RN ph
[2024-03-12 11:00] LABS: Specific Gravity 1.016 (1.005-1.030)
[2024-03-12 11:01] LABS: Specific Gravity 1.016 (1.005-1.030); Sqamous Epithelial <5 /HPF (None Seen); Urine Bacteria <20 /HPF (<20); Urine Bilirubin NEGATIVE (Negative); Urine Blood Negative (Negative); Urine Clarity Turbid (Clear); Urine Color Light-Yellow (Yellow); Urine Culture Reflex Order NOT NEEDED; Urine Glucose TRACE (Negative); Urine Ketones TRACE (Negative); Urine Microscopic Reflex YN ORDER UMIC; Urine Mucus Slight /HPF (None Seen); Urine Nitrite NEGATIVE (Negative); Urine Protein NEGATIVE (Negative); Urine RBC <5 /HPF (None Seen); Urine Urobilinogen Normal (Normal); Urine WBC <5 /HPF (<5)
[2024-03-12 11:48] VITALS: BP 118/78; TEMP 97.9; O2SAT 97
--- NOTE | 2024-03-12 12:06 | RAD REPORT ---
EXAM DESCRIPTION: US - Abdomen Exam Limited - 03/12/2024 11:10 am CLINICAL HISTORY: Abdominal pain. COMPARISON: 2022 FINDINGS: 4 millimeter bright echo region of the gallbladder neck. It is not clearly within the lume n. No posterior shadowing. Otherwise no gallstones seen. No gallbladder wall thickening The biliary tree is normal caliber. IMPRESSION: A 4 millimeter bright echo in the region of the gallbladder neck as described above. Thi s can not be confidently shown to represent a gallstone. The exam probably is negative. If the patient's symptoms do not resolve then follow-up gallbladder ultrasound would be recommended
--- NOTE | 2024-03-12 13:48 | EKG ---
Test Date: 2024-03-12 Test Time: 08:15:56 Stick Puller: SHY MEASUREMENT RESULTS: Intervals: Rate: 48 NC: 80 QRSD: 112 QT: 518 QTc: 462 [place]: P: NC: 80 QRS: 83 T: 16 INTERPRETIVE STATEMENTS: Sinus bradycardia with short NC T wave abnormality, consider anterior ischemia Prolonged QT Abnormal ECG Compared to ECG 09/19/2012 03:50:10 Short NC interval now present T-wave abnormality now present Possible ischemia now present Prolonged QT interval now present Electronically Signed On 03-12-24 13:47:14 CDT by Ernst Marcano
== END 2024-03-12 11:36 | disposition home or self-care (01) ==
LOC: ER 07:28
DX: E87.6 Hypokalemia (principal); R10.816 Epigastric abdominal tenderness
CPT/HCPCS: 36415; 76705; 80053; 81001; 81025; 83690; 85025; 93005; 96361; 96374; 96375; 99284; J2550; J7030

== ENCOUNTER 2024-09-26 08:24 | Emergency (ER) | payer SELFPAY ==
[2024-09-26 08:48] LABS: Absolute Basophils 0.1 K/uL (0-0.5); Absolute Lymphocytes (CBC) 2.3 K/uL (0.7-4.9); Absolute Monocytes 0.6 K/uL (0.1-1.3); Absolute Neutrophil 4.9 K/uL (1.8-8.0); Basophils % 0.9 % (0-1.3); Eosinophils % 0.5 % (0-4.4); Hematocrit 40.3 % (36.0-45.0); Hemoglobin 13.3 g/dL (12.0-15.0); Lymphocytes % 29.3 % (15.3-44.8); MCH 30.8 pg (27.0-35.0); MCV 93.4 fL (80-100); MPV 9.8 fL (7.6-11.3); Monocytes % 7.7 % (3.3-12.3); Neutrophils % 61.6 % (41.7-73.7); Nucleated Red Blood Cells % 0.1 % (0-0); Platelets 306 thou/uL (152-406); RBC Red Blood Cell Count 4.31 M/uL (3.86-4.86); Red Cell Distribution Width 13.5 % (12.1-15.2)
[2024-09-26] MEDS ORDERED: ONDANSETRON 4 MG/2 ML VIAL ONE (08:57)
[2024-09-26 09:08] LABS: Albumin 3.8 g/dL (3.4-5.0); Anion Gap 16.2 mEq/L (5.0-15.0); Bilirubin Total 0.6 mg/dL (0.2-1.0); Globulin 3.9 g/dL (2.3-3.5); Potassium 3.2 mEq/L (3.5-5.1); Protein, Total 7.7 g/dL (6.4-8.2)
[2024-09-26] MEDS ORDERED: METOCLOPRAMIDE 10 MG/2mL INJ ONE (09:10)
[2024-09-26] MEDS ORDERED: NA CHLORIDE 0.9% 100 ML ONE (09:11)
--- NOTE | 2024-09-26 09:48 | RAD REPORT ---
EXAM: Right upper quadrant ultrasound. CLINICAL HISTORY: RUQ pain + Vomiting COMPARISON: 03/12/2024 FINDINGS: Gallbladder: Normal. Bile ducts: No intrahepatic or extrahepatic biliary dilatation. Common bile duct measures 3 mm. Limited imaging of the liver shows no concerning finding. IMPRESSION: Unremarkable exam.
[2024-09-26 10:07] LABS: Specific Gravity 1.018 (1.005-1.030)
[2024-09-26 10:09] LABS: Specific Gravity 1.018 (1.005-1.030); Sqamous Epithelial <5 /HPF (None Seen); Urine Bacteria None Seen /HPF (<20); Urine Bilirubin NEGATIVE (Negative); Urine Blood Negative (Negative); Urine Clarity Extremely Turbid (Clear); Urine Color Light-Yellow (Yellow); Urine Culture Reflex Order NOT NEEDED; Urine Glucose 2+ (Negative); Urine Ketones 1+ (Negative); Urine Microscopic Reflex YN ORDER UMIC; Urine Mucus Slight /HPF (None Seen); Urine Nitrite NEGATIVE (Negative); Urine Protein TRACE (Negative); Urine RBC <5 /HPF (None Seen); Urine Urobilinogen Normal (Normal); Urine WBC <5 /HPF (<5); Urine Yeast (Budding) Trace /HPF (None Seen)
[2024-09-26] MEDS ORDERED: PROMETHAZINE INJ 25 MG/ML AMP ONE (10:16)
[2024-09-26] MEDS ORDERED: POTASSIUM 25 MEQ EFFERV TAB ONE (10:50)
--- NOTE | 2024-09-26 10:53 | EDPHYS ---
Physician Documentation [facility] Name: Tanna Bradley Age: 33 yrs Sex: Female : 1990 Arrival Date: 09/26/2024 Time: 08:24 Bed 8 Private MD: ED Physician Len Ferraro HPI: 09/26 08:45 This 33 yrs old Female presents to ER via EMS with complaints of Nausea/Vomiting. sp3 08:46 33-year-old female with a history of multiple episodes of vomiting episodes, anxiety, sp3 depression now presents to the ED with recurrent nausea and vomiting times greater than 6 episodes since morning. She denies any blood or mucus in her emesis. On her last visit, ultrasound demonstrated echogenic object however was not confirmed to be a gallstone. At that time she was also hypokalemic from the vomiting but her symptoms improved and was discharged. Today she denies any significant abdominal pain, back pain, CHIP PERSON symptoms, symptoms, chest pain, shortness of breath or any other signs or symptoms on ROS at this time. She denies any possible bad food exposure or known sick contacts.. 10:51 Patient feeling better after Phenergan. Ultrasound and labs demonstrate no significant sp3 abnormalities. Very few mild specks of blood noted in the last emesis likely due to excessive vomiting. Vital signs are currently normal. Patient is tolerating ice chips. I have advised her that she needs to follow-up with GI for probable endoscopy. If she continues vomiting or has any bleeding, she is to return here immediately. Patient lives less than 5 minutes from the ER and is with family who states that they will be with her the whole time and will bring her back if needed. Will discharge on p.o. Phenergan and Protonix.. 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 - Infectious Disease History:: Denies. - Social history:: Smoking status: Patient denies any tobacco usage or history of. ROS: 08:47 Constitutional: Negative for fever, chills, and weight loss, Eyes: Negative for injury, sp3 pain, redness, and discharge, ENT: Negative for injury, pain, and discharge, Neck: Negative for injury, pain, and swelling, Cardiovascular: Negative for chest pain, palpitations, and edema, Respiratory: Negative for shortness of breath, cough, wheezing, and pleuritic chest pain, Back: Negative for injury and pain, MS/Extremity: Negative for injury and deformity, Skin: Negative for injury, rash, and discoloration, Neuro: Negative for headache, weakness, numbness, tingling, and seizure, Psych: Negative for depression, anxiety, suicide ideation, homicidal ideation, and hallucinations, Allergy/Immunology: Negative for hives, rash, and allergies, Endocrine: Negative for neck swelling, polydipsia, polyuria, polyphagia, and marked weight changes, Hematologic/Lymphatic: Negative for swollen nodes, abnormal bleeding, and unusual bruising, 08:47 All other systems are negative, Exam: 08:47 Constitutional: This is a well developed, well nourished patient who is awake, alert, sp3 and in no acute distress. Head/Face: Normocephalic, atraumatic. Eyes: Pupils equal round and reactive to light, extra-ocular motions intact. Lids and lashes normal. Conjunctiva and sclera are non-icteric and not injected. Cornea within normal limits. Periorbital areas with no swelling, redness, or edema. ENT: Nares patent. No nasal discharge, no septal abnormalities noted. External auditory canals are clear. Oropharynx with no redness, swelling, or masses, exudates, or evidence of obstruction, uvula midline. Mucous membranes moist. Neck: Trachea midline, no thyromegaly or masses palpated, and no cervical lymphadenopathy. Supple, full range of motion without nuchal rigidity, or vertebral point tenderness. No Meningismus. Chest/axilla: Normal chest wall appearance and motion. Nontender with no deformity. No lesions are appreciated. Cardiovascular: Regular rate and rhythm with a normal S1 and S2. No gallops, murmurs, or rubs. Normal PMI, no JVD. No pulse deficits. Respiratory: Lungs have equal breath sounds bilaterally, clear to auscultation and percussion. No rales, rhonchi or wheezes noted. No increased work of breathing, no retractions or nasal flaring. Back: No spinal tenderness. No costovertebral tenderness. Full range of motion. Skin: Warm, dry with normal turgor. Normal color with no rashes, no lesions, and no evidence of cellulitis. MS/ Extremity: Pulses equal, no cyanosis. Neurovascular intact. Full, normal range of motion. Neuro: Awake and alert, GCS 15, oriented to person, place, time, and situation. Cranial nerves II-XII grossly intact. Motor strength 5/5 in all extremities. Sensory grossly intact. Cerebellar exam normal. Normal gait. Psych: Awake, alert, with orientation to person, place and time. Behavior, mood, and affect are within normal limits. 08:47 Abdomen/GI: Mild pain to the right upper quadrant on palpation. Negative clinical Macdonald sign. No peritoneal signs, rebound or guarding. No CVA tenderness noted., Vital Signs: 08:27 BP 131 / 94; Pulse 74; Resp 16; Temp 98; Pulse Ox 100% ; Weight 90.72 kg; Height 5 ft. bp 9 in. ; 09:13 BP 127 / 85; Pulse 66; Resp 18; Pulse Ox 100% on R/A; ph 10:54 BP 153 / 95; Pulse 52; Resp 16; Pulse Ox 98% ; bp 08:27 Body Mass Index 29.53 (90.72 kg, 175.26 cm) bp MDM: 08:30 Medical Screening Exam initiated sp3 08:48 Data reviewed: vital signs, nurses notes, old medical records, lab test result(s), sp3 radiologic studies. ED course: 33-year-old female with recurrent vomiting and mild abdominal pain. Differential diagnosis includes idiopathic vomiting/gastroparesis similar to her prior episodes, viral illness, biliary pathology including cholelithiasis, cholecystitis, choledocholithiasis, pancreatitis, gastritis, other intestinal pathology. I am not highly suspicious of vascular, CHIP PERSON or pathology. Workup will include general labs, right upper quadrant ultrasound and treatment with IV fluids and IV ondansetron as needed. Disposition pending workup and patient course.. 09/26 08:31 Order name: CBC with Diff; Complete Time: 09:59 sp3 09/26 08:31 Order name: CMP; Complete Time: 09:59 sp3 09/26 08:31 Order name: Lipase; Complete Time: 09:59 sp3 09/26 08:31 Order name: Test, Urine; Complete Time: 10:16 sp3 09/26 08:31 Order name: Urinalysis w/ reflexes; Complete Time: 10:16 sp3 09/26 08:31 Order name: Abdomen Limited US; Complete Time: 09:59 sp3 09/26 08:31 Order name: IV Saline Lock; Complete Time: 08:31 sp3 09/26 08:31 Order name: Labs collected and sent; Complete Time: 08:41 sp3 Administered Medications: 09:00 Drug: Ondansetron IVP 4 mg IVP once; over 2 minutes Route: IVP; Site: right antecubital;ph 09:13 Follow up: Response: No adverse reaction; Nausea unchanged ph 09:00 Drug: NS 0.9% IV 1000 ml IV at 1 bolus Per protocol; to be given as a bolus over 60 ph minutes Route: IV; Rate: 1 bolus; Site: right antecubital; 10:00 Follow up: Response: No adverse reaction; IV Status: Completed infusion; IV Intake: ph 1000ml 09:13 Drug: metoCLOPramide IVP 10 mg IVP once; over 1 to 2 minutes Route: IVP; Site: right ph antecubital; 10:53 Follow up: Response: No adverse reaction bp 10:30 Drug: Promethazine IVP 12.5 mg IVP once Route: IVP; Site: right antecubital; ph 10:53 Follow up: Response: No adverse reaction bp 10:30 Drug: Potassium PO Effervescent Tablet 50 mEq PO once; dissolve in 4 ounces of water or bp juice Route: PO; 10:53 Follow up: Response: No adverse reaction bp Disposition Summary: 09/26/24 10:52 Discharge Ordered Notes: Location: Home sp3 Condition: Stable sp3 Diagnosis - Intractable vomiting, gastroparesis sp3 Followup: sp3 - With: Private Physician - When: Upon discharge from the Emergency Department - Reason: Continuance of care Followup: sp3 - With: Tesfaye Bonner MD - When: Upon discharge from the Emergency Department - Reason: Recheck today's complaints Discharge Instructions: - Discharge Summary Sheet sp3 - Vomiting, Adult sp3 Forms: - Medication Reconciliation Form sp3 - Antibiotic Education sp3 - Prescription Opioid Use sp3 - Patient Portal Instructions sp3 - Leadership Thank You Letter sp3 Prescriptions: - Protonix 40 mg Oral Tablet - take 1 tablet ORAL route once daily; 30 tablet; Refills: 0, Product Selection sp3 Permitted - promethazine 25 mg Oral Tablet - take 1 tablet ORAL route every 6 hours As needed; 20 tablet; Refills: 0, sp3 Product Selection Permitted Signatures: Dispatcher [employer] EDMS Marybeth Peters, RN RN Andrei Aguilar RN RN Len Hamilton MD MD sp3 Corrections: (The following items were deleted from the chart) 08:32 08:32 CBC+H.LAB.BRZ ordered. EDMS EDMS 08:32 08:32 COMPREHENSIVE METABOLIC PANEL+C.LAB.BRZ ordered. EDMS EDMS 08:32 08:32 LIPASE+C.LAB.BRZ ordered. EDMS EDMS 08:32 08:32 Test, Urine+UC.LAB.BRZ ordered. EDMS EDMS 08:32 08:32 Urinalysis+U.LAB.BRZ ordered. EDMS EDMS 08:32 08:32 Abdomen Limited+US.RAD.BRZ ordered. EDMS EDMS
--- NOTE | 2024-09-26 10:53 | ER ---
Nurse's Notes [facility] Name: Tanna Bradley Age: 33 yrs Sex: Female : 1990 Arrival Date: 09/26/2024 Time: 08:24 Bed 8 Private MD: Diagnosis: Intractable vomiting, gastroparesis Presentation: 09/26 08:27 Chief complaint: EMS states: NAUSEA/VOMITING SINCE 0600. Coronavirus screen: At this bp time, the client does not indicate any symptoms associated with coronavirus-19. Ebola Screen: No symptoms or risks identified at this time. Initial Sepsis Screen: Does the patient meet any 2 criteria? No. Patient's initial sepsis screen is negative. Does the patient have a suspected source of infection? No. Patient's initial sepsis screen is negative. Risk Assessment: Do you want to hurt yourself or someone else? Patient reports no desire to harm self or others. Onset of symptoms was September 26, 2024 at 06:00. Care prior to arrival: Medication(s) given: Normal saline infusion, 500 mL, zofran 4 mg, IV initiated. 20 GA, in the right antecubital area. 08:27 Method Of Arrival: EMS: [facility] bp 08:27 Acuity: DANA 3 bp Triage Assessment: 08:29 General: Appears in no apparent distress. uncomfortable, Behavior is cooperative, bp appropriate for age, anxious. Pain: Denies pain. EENT: No deficits noted. Neuro: No deficits noted. Cardiovascular: No deficits noted. Respiratory: No deficits noted. GI: Abdomen is non-distended, Reports nausea, vomiting, Patient currently denies abdominal pain. : No signs and/or symptoms were reported regarding the genitourinary system. Derm: No deficits noted. Musculoskeletal: No deficits noted. 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 - Infectious Disease History:: Denies. - Social history:: Smoking status: Patient denies any tobacco usage or history of. Screenin:29 [facility] ED Fall Risk Assessment (Adult) History of falling in the last 3 months, ph including since admission No falls in past 3 months (0 pts) Confusion or Disorientation No (0 pts) Intoxicated or Sedated No (0 pts) Impaired Gait No (0 pts) Mobility Assist Device Used No (0 pt) Altered Elimination No (0 pt) Score/Fall Risk Level 0 - 2 = Low Risk Oriented to surroundings, Maintained a safe environment, Hourly rounding (assess needs \T\ fall precautionary measures) done. Abuse screen: Denies threats or abuse. Denies injuries from another. Nutritional screening: No deficits noted. Tuberculosis screening: No symptoms or risk factors identified. Assessment: 08:30 General: Appears in no apparent distress. Behavior is calm, cooperative, appropriate bp for age. 11:03 Reassessment: PT DC HOME AMBULATORY WITH FAMILY. bp Vital Signs: 08:27 BP 131 / 94; Pulse 74; Resp 16; Temp 98; Pulse Ox 100% ; Weight 90.72 kg; Height 5 ft. bp 9 in. ; 09:13 BP 127 / 85; Pulse 66; Resp 18; Pulse Ox 100% on R/A; ph 10:54 BP 153 / 95; Pulse 52; Resp 16; Pulse Ox 98% ; bp 08:27 Body Mass Index 29.53 (90.72 kg, 175.26 cm) bp ED Course: 08:27 Patient arrived in ED. bp 08:28 Marybeth Peters, RN is Primary Nurse. ph 08:28 Triage completed. bp 08:28 Arm band placed on Patient placed in an exam room, on a stretcher, on pulse oximetry. ph 08:30 Len Ferraro MD is Attending Physician. sp3 08:30 Patient has correct armband on for positive identification. Bed in low position. Call ph light in reach. Side rails up X 1. Pulse ox on. NIBP on. Door closed. Noise minimized. Warm blanket given. Pillow given. 08:30 Maintain EMS IV. Dressing intact. Good blood return noted. Site clean \T\ dry. Gauge \T\ bp site: 20 GA R AC. Flushed with 10 mL NS. 08:41 CBC with Diff Sent. kb4 08:41 CMP Sent. kb4 08:41 Lipase Sent. kb4 08:42 Initial lab(s) drawn, by me, sent to lab. kb4 09:43 Abdomen Limited US In Process Unspecified. EDMS 10:52 Tesfaye Bonner MD is Referral Physician. sp3 10:55 No provider procedures requiring assistance completed. IV discontinued, intact, bp bleeding controlled, No redness/swelling at site. Pressure dressing applied. 11:03 Provided Education on: NA. bp Administered Medications: 09:00 Drug: Ondansetron IVP 4 mg IVP once; over 2 minutes Route: IVP; Site: right antecubital;ph 09:13 Follow up: Response: No adverse reaction; Nausea unchanged ph 09:00 Drug: NS 0.9% IV 1000 ml IV at 1 bolus Per protocol; to be given as a bolus over 60 ph minutes Route: IV; Rate: 1 bolus; Site: right antecubital; 10:00 Follow up: Response: No adverse reaction; IV Status: Completed infusion; IV Intake: ph 1000ml 09:13 Drug: metoCLOPramide IVP 10 mg IVP once; over 1 to 2 minutes Route: IVP; Site: right ph antecubital; 10:53 Follow up: Response: No adverse reaction bp 10:30 Drug: Promethazine IVP 12.5 mg IVP once Route: IVP; Site: right antecubital; ph 10:53 Follow up: Response: No adverse reaction bp 10:30 Drug: Potassium PO Effervescent Tablet 50 mEq PO once; dissolve in 4 ounces of water or bp juice Route: PO; 10:53 Follow up: Response: No adverse reaction bp Medication: 08:30 VIS not applicable for this client. ph Intake: 10:00 IV: 1000ml; Total: 1000ml. ph Outcome: 10:52 Discharge ordered by . sp3 11:03 Discharged to home ambulatory, with family, bp 11:03 Condition: stable 11:03 Discharge instructions given to patient, family, Instructed on discharge instructions, follow up and referral plans. medication usage, Demonstrated understanding of instructions, follow-up care, medications, Prescriptions given X 2, 11:05 Patient left the ED. bp Signatures: Dispatcher [employer] EDMS Marybeth Peters, RN RN ph Andrei Wall RN RN bp Len Ferraro MD MD sp3 Daisha Valencia kb4
[2024-09-26 11:10] VITALS: TEMP 98
[2024-09-26 11:12] VITALS: BP 153/95; O2SAT 98
== END 2024-09-26 11:05 | disposition home or self-care (01) ==
LOC: ER 08:24
DX: K31.84 Gastroparesis (principal)
CPT/HCPCS: 36415; 76705; 80053; 81001; 81025; 83690; 85025; 96361; 96374; 96375; 99284; J2405; J2550; J2765

== ENCOUNTER 2025-01-24 18:55 | Emergency (ER) | payer BC, SELFPAY ==
[2025-01-24 19:33] LABS: Absolute Basophils 0.1 K/uL (0-0.5); Absolute Eosinophils 0.2 K/uL (0-0.5); Absolute Lymphocytes (CBC) 3.7 K/uL (0.7-4.9); Absolute Monocytes 0.6 K/uL (0.1-1.3); Absolute Neutrophil 5.2 K/uL (1.8-8.0); Basophils % 0.8 % (0-1.3); Eosinophils % 1.8 % (0-4.4); Hemoglobin 13.4 g/dL (12.0-15.0); Lymphocytes % 37.8 % (15.3-44.8); MCH 31.2 pg (27.0-35.0); MCHC 33.4 g/dL (32.0-36.0); MCV 93.6 fL (80-100); MPV 9.9 fL (7.6-11.3); Monocytes % 6.3 % (3.3-12.3); Neutrophils % 53.3 % (41.7-73.7); Platelets 237 thou/uL (152-406); RBC Red Blood Cell Count 4.28 M/uL (3.86-4.86); Red Cell Distribution Width 13.5 % (12.1-15.2)
[2025-01-24 19:35] LABS: PTT, Activated Partial Thromb 27.2 SECONDS (27.2-37.4); Protime INR 0.96
[2025-01-24 20:04] LABS: ALT/SGPT 34 U/L (13-56); AST/SGOT 35 U/L (15-37); Alkaline Phosphatase 63 U/L (45-117); Anion Gap 16.2 mEq/L (5.0-15.0); BUN Blood Urea Nitrogen 15 mg/dL (7-18); Bicarbonate 16 mEq/L (21-32); Bilirubin Total 0.3 mg/dL (0.2-1.0); Globulin 4.1 g/dL (2.3-3.5); Glomerular Filtration Rate 86 ml/min (=/>90); Glucose Level 129 mg/dL (74-106); Potassium 3.2 mEq/L (3.5-5.1); Protein, Total 8.1 g/dL (6.4-8.2); Sodium Level 143 mEq/L (136-145)
[2025-01-24 20:05] LABS: Bilirubin Direct < 0.2 mg/dL (0-0.2); Bilirubin Indirect, Calculated 0.1 mg/dL (0.2-0.8)
--- NOTE | 2025-01-24 20:49 | RAD REPORT ---
EXAMINATION: CT HEAD WITHOUT CONTRAST CT CERVICAL SPINE WITHOUT CONTRAST CLINICAL INDICATION: Head and neck injury status post trauma.. Head and neck pain TECHNIQUE: Axial CT images from the skull base to the vertex without intravenous contrast. Axial CT i mages through the cervical spine were obtained without intravenous contrast. Sagittal and coronal reformatted images were created from the data set. Coronal and sagittal reformatted images were creat ed from the data set. One or more of the following dose reduction techniques were used: Automated exposure control, adjustment of the mA and/or kV according to patient size, and/or iterative reconstr uction. Unless otherwise specified, incidental findings do not require dedicated imaging follow-up. [id number]. Comparison: 2010 FINDINGS: Left craniotomy. An area of gliosis left frontal lobe. An intracranial bleed is not seen. Ventricles are normal in caliber. No significant hypodensity within the brain No extra-axial fluid collection. No fluid within the sinuses/mastoids No fracture or dislocation is seen involving the cervical spine. IMPRESSION: No acute intracranial abnormality noted A cervical fracture is not seen. 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
--- NOTE | 2025-01-24 20:50 | RAD REPORT ---
EXAMINATION: CT MAXILLOFACIAL WITHOUT CONTRAST CLINICAL INDICATION: Facial pain. Status post trauma TECHNIQUE: Axial images were obtained through the facial bones and orbits without intravenous contras t. Sagittal and coronal reconstructions were created from the data. One or more of the following dose reduction techniques were used: Automated exposure control, adjustment of the mA and/or kV accor ding to patient size, and/or iterative reconstruction. Unless otherwise specified, incidental findings do not require dedicated imaging follow-up. COMPARISON: No prior exam. FINDINGS: Left cheek swelling. The globes are normal size and density. No fracture seen. No TMJ dislocation. Fluid within the sinuses is not noted. IMPRESSION: No fracture seen
[2025-01-24] MEDS ORDERED: POTASSIUM 25 MEQ EFFERV TAB ONE (21:38)
[2025-01-24 22:42] LABS: Specific Gravity 1.015 (1.005-1.030)
[2025-01-24 22:47] LABS: Barbiturates NEGATIVE (NEGATIVE); Benzodiazepines NEGATIVE (NEGATIVE); Cocaine NEGATIVE (NEGATIVE); METHAMPHETAM NEGATIVE (NEGATIVE); Methadone NEGATIVE (NEGATIVE); Opiates NEGATIVE (NEGATIVE); Phencyclidine NEGATIVE (NEGATIVE); THC Cannibis POSITIVE (NEGATIVE)
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
[2025-01-24 23:27] VITALS: O2SAT 98
[2025-01-24 23:29] VITALS: TEMP 98.5
[2025-01-24 23:31] VITALS: BP 114/80
--- NOTE | 2025-01-26 12:01 | EKG ---
Test Date: 2025-01-24 Test Time: 19:19:57 Service Establishment Attendant: KLEVER MEASUREMENT RESULTS: Intervals: Rate: 74 ME: 148 QRSD: 102 QT: 426 QTc: 472 [place]: P: 58 ME: 148 QRS: 63 T: 48 INTERPRETIVE STATEMENTS: Normal sinus rhythm Normal ECG Compared to ECG 03/12/2024 08:15:56 Sinus bradycardia no longer present Short ME interval no longer present T-wave abnormality no longer present Possible ischemia no longer present Prolonged QT interval no longer present Electronically Signed On 01-26-25 11:57:09 CDT by Luis Osborne
== END 2025-01-24 23:21 | disposition home or self-care (01) ==
LOC: ER 18:55
DX: Z04.71 Encounter for examination and observation following alleged adult physical abuse (principal); S00.83XA Contusion of other part of head, initial encounter; F10.929 Alcohol use, unspecified with intoxication, unspecified; E87.6 Hypokalemia
CPT/HCPCS: 36415; 70450; 70486; 72125; 76377; 80048; 80076; 80143; 80179; 80307; 81025; 82077; 85025; 85610; 85730; 93005; 96360; 96361; 99285